=== PATIENT | female | born 1980 | race Caucasian/White ===

== ENCOUNTER 2018-11-24 02:03 | Emergency (ER) ==
[2018-11-24 02:13] VITALS: TEMP 98.2; BMI 21.6
[2018-11-24] MEDS ORDERED: ZESTRIL PO STA (02:35)
[2018-11-24] MEDS ORDERED: CATAPRES PO STA (02:35)
--- NOTE | 2018-11-24 02:38 | ED.PDOC ---
General ED Provider: Dr. PEPPER MCCRARY-ER Chief Complaint: Medication Refill Stated Complaint: i need refill of my control --i am having vag bleeding Time Seen by Physician: 02:10 Mode of Arrival: Walk-In Information Source: Patient Exam Limitations: No limitations Nursing and Triage Documentation Reviewed and Agree: Yes Does patient meet sepsis criteria?: No System Inflammatory Response Syndrome: Not Applicable Sepsis Protocol: For patient's 13 years and over: Temp is 96.8 and below OR 101 and greater Pulse >90 BPM Resp >20/minute Acutely Altered Mental Status Are patient's symptoms suggestive of a new infection, such as: -Pneumonia -Skin, Soft Tissue -Endocarditis -UTI -Bone, Joint Infection -Implantable Device -Acute Abdominal Infection -Wound Infection -Meningitis -Blood Stream Catheter Infection -Unknown 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 Complaint Exam - Vaginal Bleeding Complaint/Exam Onset/Duration: 3 days Symptoms Are: Still present Timing: Constant Initial Severity: Mild Current Severity: Mild Character: Reports: Bright red Aggravating: Reports: None Alleviating: Reports: None Associated Signs and Symptoms: Denies: Dizziness, Lightheadedness, Pale, UTI symptoms, Abdominal pain, Cramping, Generalized pain Related History: Reports: Use of oral contraceptive Spontaneous AB Risk Factors: Reports: None Placental Abruption Risk Factors: Reports: None Patient Rh Status: Unknown Related Surgical History: Reports: None Abdominal Findings: Present: None Differential Diagnoses: DUB Review of Systems - Review Of Systems Constitutional: Reports: No symptoms Eyes: Reports: No symptoms Ears, Nose, Mouth, Throat: Reports: No symptoms Respiratory: Reports: No symptoms Cardiac: Reports: No symptoms GI: Reports: No symptoms : Reports: No symptoms Musculoskeletal: Reports: No symptoms Skin: Reports: No symptoms Neurological: Reports: No symptoms Endocrine: Reports: No symptoms Hematologic/Lymphatic: Reports: No symptoms All Other Systems: Reviewed and Negative Past Medical History - Past Medical History Previously Healthy: No Endocrine: Reports: Unknown Cardiovascular: Reports: Hypertension Respiratory: Reports: Unknown Hematological: Reports: Unknown Gastrointestinal: Reports: Unknown Genitourinary: Reports: Unknown Neuro/Psych: Reports: Unknown Musculoskeletal: Reports: Unknown Cancer: Reports: Unknown Last Menstrual Period: PRESENTLY - Surgical History General Surgical History: Reports: Unknown - Family History Family History: Reports: Unknown - Social History Smoking Status: Current every day smoker, Light tobacco smoker Hx Substance Use: No Alcohol Screening: Occasionally - Immunizations Tetanus Shot up to Date: Yes Physical Exam - Physical Exam Appearance: Well-appearing, No pain distress, Well-nourished Eyes: DAVID, EOMI, Conjunctiva clear ENT: Ears normal, Nose normal, Oropharynx normal Neck: Supple Respiratory: Airway patent, Breath sounds clear, Breath sounds equal, Respirations nonlabored Cardiovascular: RRR, Pulses normal, No rub, No murmur GI/: Soft, Nontender, No masses, Bowel sounds normal, No Organomegaly, Hepatomegaly Musculoskeletal: Normal strength, ROM intact, No edema, No calf tenderness Skin: Warm, Dry, Normal color Neurological: Sensation intact, Motor intact, Reflexes intact, Cranial nerves intact, Alert, Oriented Psychiatric: Affect appropriate, Mood appropriate Critical Care Note - Critical Care Note Total Time (mins): 0 Course - Course Orders, Labs, Meds: Orders Category Date Time Status URINE Stat LAB 11/24/18 02:24 Ordered Clonidine HCl [Catapres] MEDS 11/24/18 02:35 Discontinued 0.1 mg PO ONCE STA Lisinopril [Zestril] MEDS 11/24/18 02:35 Discontinued 40 mg PO ONCE STA Medications Discontinued Medications Generic Name Dose Route Start Last Admin Trade Name Freq PRN Reason Stop Dose Admin Clonidine 0.1 mg 11/24/18 02:35 11/24/18 02:44 Catapres PO 11/24/18 02:36 Not Given ONCE STA Lisinopril 40 mg 11/24/18 02:35 11/24/18 02:44 Zestril PO 11/24/18 02:36 40 mg ONCE STA Administration Vital Signs: Temp Pulse Resp BP Pulse Ox 11/24/18 02:04 98.2 F 110 H 20 176/130 H 98 Departure - Departure Time of Disposition: 02:38 Disposition: AMA Discharge Problem: Dysfunctional uterine bleeding Instructions: Dysfunctional Uterine Bleeding (ED) Condition: Good Pt referred to PMD for follow-up: Yes IPMP verified?: No Additional Instructions: keep appt with your doctor tomorrow Allergies/Adverse Reactions: Allergies Sulfa (Sulfonamide Antibiotics) Adverse Reaction (Verified 11/24/18 02:14) "LOW BLOOD PRESSURE" Home Medications: Ambulatory Orders Dextroamphetamine/Amphetamine [Adderall 30 mg Tablet] 30 mg PO DAILY 11/24/18 Etonogestrel [Nexplanon] 68 mg SQ DIRECTED 11/24/18 Levonorgestrel-Ethin Estradiol [Lutera-28 Tablet] 1 each PO DIRECTED Lisinopril [Zestril] 40 mg PO DAILY 11/24/18 Disposition Discussed With: Patient
[2018-11-24 02:57] LABS: URINE PREGNANCY TEST NEGATIVE (NEGATIVE)
[2018-11-24 03:06] VITALS: BP 176/131
== END 2018-11-24 03:03 | disposition left against medical advice (07) ==
LOC: ED 02:03
DX: N93.9 Abnormal uterine and vaginal bleeding, unspecified (principal); Z72.0 Tobacco use; N93.8 Other specified abnormal uterine and vaginal bleeding
CPT/HCPCS: 81025; 99284